=== PATIENT | male | born 1990 | race Caucasian/White ===

== ENCOUNTER → 2020-12-01 | Outpatient (CLI) | payer OTHER ==
[~2020-12-01] MED LIST: GABAPENTIN400 MG PO; IMITREX100 MG PO; NORCO 7.5-3251 EACH PO; REMERON15 MG PO; VISTARIL25 MG PO
== END ==
LOC: EMI 09:39
DX: G44.89 Other headache syndrome (principal); G43.009 Migraine without aura, not intractable, without status migrainosus; R25.1 Tremor, unspecified
CPT/HCPCS: 70551